=== PATIENT | female | born 1950 | race Caucasian/White ===

== ENCOUNTER → 2018-12-30 09:16 | Outpatient (CLI) | payer MEDICARE, OTHER, SELFPAY ==
--- NOTE | 2018-12-30 10:00 | MRI_ITS ---
STUDY: BILATERAL BREAST MR WITHOUT AND WITH CONTRAST REASON FOR EXAM: Female, 68 years old. Indeterminate nodule on most recent mammogram with a negative ultrasound. TECHNIQUE: Multi-sequence multi-echo imaging of both breasts was performed with a dedicated breast coil. T1-weighted and T2-weighted images were performed before the administration of contrast. T1-weighted images were also performed after the administration of 12 IV Dotarem without complications. COMPARISON: Bilateral mammograms dated December 09, 2018 and right breast ultrasound dated December 16, 2018. FINDINGS: RIGHT BREAST: The breast tissue is fatty with no background enhancement. There are no abnormal enhancing masses or areas of non-mass enhancement in the right breast. LEFT BREAST: The breast tissue is fatty with no background enhancement. There are no abnormal enhancing masses or areas of non-mass enhancement in the left breast. There are no enlarged or abnormal lymph nodes. There is no abnormality in the visualized regions of the chest or liver. MRI/Breast Bilateral W/O and W IMPRESSION: Normal breast MRI examination with contrast. A six-month follow-up right mammogram is recommended for the indeterminate nodule in the upper and posterior aspect of the right breast. CATEGORY: BIRADS Category 3: Probably Benign - Short-Interval Follow-up Suggested. A letter regarding these results will be sent to the patient by the facility within 30 days. Electronically Signed: Pratik Rodney MD at 16:29 EDT , Service support ,
== END ==
PROVIDERS: Family Provider Family Medicine; PCP Family Medicine; Referring Provider Family Medicine; Visit Provider Family Medicine
DX: R92.8 Other abnormal and inconclusive findings on diagnostic imaging of breast (principal)
CPT/HCPCS: 77049; A9575; A4216; C8908

== ENCOUNTER 2021-01-17 07:39 | Emergency (ER) | payer MEDICARE, OTHER, SELFPAY ==
[2021-01-17 07:40] VITALS: BP 152/77; PULSE 88; RESP 14; TEMP 37.1; O2SAT 100; BMI 25.5
--- NOTE | 2021-01-17 07:59 | EKG12_ITS ---
Test Reason : Blood Pressure : / mmHG Vent. Rate : 076 BPM Atrial Rate : 076 BPM P-R Int : 138 ms QRS Dur : 084 ms QT Int : 414 ms P-R-T Axes : 040 044 025 degrees QTc Int : 465 ms Normal sinus rhythm Normal ECG Confirmed by ANTONETTE KUO, LAKEISHA ([id number]), scientific editor TASHA SALES ([id number]) on 01/21/2021 1:38:14 PM Referred By: LUCRECIA Confirmed By:LAKEISHA WHITMAN MD
--- NOTE | 2021-01-17 07:59 | RAD_ITS ---
STUDY: X-RAY CHEST REASON FOR EXAM: Female, 70 years old. Sudden onset of chest pain. TECHNIQUE: Single AP portable view of the chest. COMPARISON: None. FINDINGS: EKG electrodes are seen. There is elevation and eventration of the left hemidiaphragm with mild increased markings at both lung bases suggestive of basilar atelectasis. Blunting of the left cause phrenic angle. Normal size heart. Normal mediastinum and kelby. Normal visualized pulmonary arteries. Normal visualized aortic arch and descending thoracic aorta. Normal visualized thoracic spine. Normal visualized ribs, clavicles, and shoulders. There is no demonstrated abnormality of the visualized soft tissue structures of the upper abdomen. RAD/Chest 1 View (Portable) IMPRESSION: Elevation and eventration of the left hemidiaphragm with bibasilar atelectasis. Electronically Signed: Niranjan Kathleen MD at 8:33 EDT , Service support ,
[2021-01-17 08:12] VITALS: O2SAT 98
--- NOTE | 2021-01-17 08:15 | ED.VIS.CHEST ---
HPI History of Present Illness Chief Complaint: Chest Pain Informant: patient Onset/Context/Timing Onset: Yesterday Activity at onset: gradual Quality: Positive for Dull Location: Left Parasternal Current Severity: Moderate Maximum Severity: Moderate Worsened By: Breathing Narrative Narrative: Patient present secondary to chest pain. She was doing bowel prep yesterday for an anticipated colonoscopy today. Patient states after starting the prep she developed a dull pain in her left upper chest that radiates to the shoulder and down her arm. It is worse with deep breath. She states that it did not worsen when she was up and ambulating. She does have a history of hiatal hernia and states this feels similar. She denies known cardiac history. [facility] Medical History Hiatal hernia High cholesterol Hypothyroidism Multiple sclerosis Home Medications levothyroxine [Euthyrox] 100 mcg PO DAILY 01/17/21 [History Last Taken Unknown] omeprazole magnesium [Prilosec OTC] 20 mg PO DAILY #30 tab 01/17/21 [Rx Last Taken Unknown] simvastatin 40 mg PO DAILY 01/17/21 [History Last Taken Unknown] Allergy/AdvReac Type Severity Reaction Status Date / Time No Known Allergies Allergy Verified 01/17/21 07:40 Social History Smoking Status: Never smoker ROS ROS ED Constitutional Constitutional ED: Denies chills or fever(s) Eyes Eyes: Denies change in vision ENT ENT ED: Denies sore throat Cardiovascular Cardiovascular: Reports chest pain Respiratory/Chest Respiratory/Chest: Reports other Details: Increased pain with deep breath ; Denies cough or dyspnea Gastrointestinal Gastrointestinal: Denies abdominal pain, diarrhea, nausea or vomiting Genitourinary Genitourinary ED: Denies dysuria Musculoskeletal Musculoskeletal: Denies back pain Integumentary Denies rash Neurologic Neurologic: Denies headache(s) or weakness Allergic/Immunologic Allergic/Immunologic ED: Denies urticaria EXAM Physical Exam Const Vital Signs: 01/17/21 07:40 01/17/21 08:12 01/17/21 08:21 Temperature 98.7 F Temperature Source Temporal Pulse Rate 88 Respiratory Rate 14 Respiratory Effort Normal Non-Labored Blood Pressure 152/77 H Blood Pressure Mean 102 Pulse Ox 100 98 Oxygen Delivery Method Room Air Room Air 01/17/21 11:02 Temperature Temperature Source Pulse Rate 87 Respiratory Rate 19 H Respiratory Effort Blood Pressure 119/79 Blood Pressure Mean 92 Pulse Ox 98 Oxygen Delivery Method Room Air Positive well nourished and well developed General Appearance ED: well developed HEENT Reports normocephalic and head/scalp atraumatic Eyes PERRL and EOMs intact bilaterally Neck supple Chest Wall inspection of chest normal and palpation of chest normal Resp normal respiratory effort and clear to auscultation bilaterally Cardio regular rate and regular rhythm GI normal to inspection, nondistended, normoactive bowel sounds Palpation: soft Extremity normal to inspection Neuro oriented x3 and no sensory deficits noted Sensorium / Orientation: alert Motor Exam: strength 5/5 throughout Psych mental status grossly normal Skin no rashes or lesions noted Heart Score History: Moderately Suspicious ECG: Normal Age: >/= 65 years Risk Factors: 1 or 2 Risk Factors Troponin: </= Normal Limit Score: 4 MDM MDM MDM Narrative Medical decision making narrative: Patient was given aspirin on arrival along with a small dose of morphine. Lab work, EKG, chest x-ray obtained. Lab Data Attestation: I reviewed the patient's lab results. Labs: Laboratory Results - last 24 hr 01/17/21 01/17/21 01/17/21 08:10 08:10 08:10 WBC 5.9 RBC 4.46 Hgb 13.5 Hct 41.8 MCV 93.7 MCH 30.3 MCHC 32.3 RDW Std Deviation 44.6 H RDW Coeff of Mihaela 13.0 Plt Count 177 MPV 10.3 Immature Gran % (Auto) 0.200 Neut % (Auto) 64.3 Lymph % (Auto) 25.5 [place] % (Auto) 8.0 Eos % (Auto) 1.5 Baso % (Auto) 0.5 Absolute Neuts (auto) 3.8 Absolute Lymphs (auto) 1.49 Nucleated RBC % 0 D-Dimer Quant (PE/DVT) 0.70 H* Sodium 142 Potassium 4.1 Chloride 109 H Carbon Dioxide 29.0 Anion Gap 4 L BUN 13 Creatinine 0.86 Estim Creat Clear Calc 51.81 Est GFR (MDRD) Af Amer 83 Est GFR (MDRD) Non-Af 69 BUN/Creatinine Ratio 15.0 Glucose 89 Calcium 8.9 Troponin I High Sens 6 01/17/21 10:54 WBC RBC Hgb Hct MCV MCH MCHC RDW Std Deviation RDW Coeff of Mihaela Plt Count MPV Immature Gran % (Auto) Neut % (Auto) Lymph % (Auto) [place] % (Auto) Eos % (Auto) Baso % (Auto) Absolute Neuts (auto) Absolute Lymphs (auto) Nucleated RBC % D-Dimer Quant (PE/DVT) Sodium Potassium Chloride Carbon Dioxide Anion Gap BUN Creatinine Estim Creat Clear Calc Est GFR (MDRD) Af Amer Est GFR (MDRD) Non-Af BUN/Creatinine Ratio Glucose Calcium Troponin I High Sens 6 Radiography Chest X-Ray - ED: 1 View, Read by ED Physician and - (Hiatal hernia with elevation of left hemidiaphragm.) Diagnostic Testing: Radiology Impression Chest X-Ray 01/17/21 07:59 IMPRESSION: Elevation and eventration of the left hemidiaphragm with bibasilar atelectasis. Electronically Signed: Niranjan Kathleen MD at 8:33 EDT , Service support , EKG Initial EKG: Attestation: I personally reviewed and interpreted this EKG as follows: Interpretation: Sinus Rhythm (Sinus at 76 with no acute ischemia.) Treatment and Re-Evaluation Comments:: On repeat examination patient's lab work reviewed with her and was largely unremarkable. Troponin is negative and D-dimer is normal when age-adjusted. She had some improvement in her pain with aspirin and morphine. Delta troponin was ordered and a GI cocktail given. On final repeat examination patient states that her pain is improved and she feels that she can breathe better after the GI cocktail. She does have evidence of elevated left hemidiaphragm and a hiatal hernia on her chest x-ray. She will be started on antacid and will follow up with Dr. Francisco. I did speak with Dr. Francisco and they will call her to reschedule her colonoscopy. Discharge Plan Triage Chief Complaint: Chest Pain ED Provider: Sindhu Mina Dx/Rx/DC Orders Clinical Impression: Chest pain, Hernia, hiatal Instructions: ED Chest Pain, Noncardiac, ED Hiatal Hernia Prescriptions: New omeprazole magnesium [Prilosec OTC] 20 mg tablet,delayed release (DR/EC) 20 mg PO DAILY Qty: 30 RF: 0 No Action simvastatin 40 mg tablet 40 mg PO DAILY RF: 0 levothyroxine [Euthyrox] 100 mcg tablet 100 mcg PO DAILY RF: 0 Primary Care Provider: Velasquez Graham Referrals: Lucia Francisco MD [STAFF PHYSICIAN] - As soon as possible Velasquez Graham DO [Primary Care Provider] - Disposition Disposition: Home, Self Care
[2021-01-17 08:17] LABS: Absolute Lymphocyte Count 1.49 X10^3/uL (0.83-4.51); Absolute Neutrophil Count 3.8 X10^3/uL (2.0-7.7); Basophil# 0.03 X10^3/uL; Basophil% 0.5 % (0-1); Eosinophil# 0.09 X10^3/uL; Eosinophils% 1.5 % (0-5); Hematocrit 41.8 % (37-47); Hemoglobin 13.5 g/dL (12.0-15.0); Lymphocyte # 1.49 X10^3/ul (0.83-4.51); Lymphocyte % 25.5 % (19-41); Mean Corp Hgb Conc 32.3 g/dL (32-36); Mean Corpuscular Hgb 30.3 pg (27.0-32.0); Mean Corpuscular Volume 93.7 fL (81-99); Mean Platelet Vol. 10.3 fl (6.2-12.0); Monocyte# 0.47 X10^3/uL; NRBC Flagged by Analyzer 0 % (0-5); Neutrophil # 3.76 X10^3/uL (2.7-7.7); Neutrophil % 64.3 % (47-70); Platelet Count 177 K/mm3 (150-450); RBC Distribution Width SD 44.6 fl (35.1-43.9); Red Blood Count 4.46 M/mm3 (4.2-5.4); White Blood Count 5.9 K/mm3 (4.4-11.0)
[2021-01-17] MEDS: Ondansetron 4 MG/2 ML Vial IV (08:20)
[2021-01-17] MEDS: Morphine 4 MG/ML Syringe 2 MG IV (08:20)
[2021-01-17] MEDS: Aspirin 81 MG TAB.CHEW 324 MG PO (08:20)
[2021-01-17 08:34] LABS: Anion Gap 4 (5-15); BUN 13 mg/dL (7-18); Calcium,Total 8.9 mg/dL (8.5-10.1); Chloride 109 mmol/L (98-107); Creatinine, Serum 0.86 mg/dL (0.55-1.02); EST Glomerular Filtration Rate 69 mL/min (>60); Est Glom Filt Rate - Afr Amer 83 mL/min (>60); Estimated Creatinine Clearance 51.81 ml/min; Glucose 89 mg/dL (74-106); Potassium 4.1 mmol/L (3.5-5.1); Sodium Level 142 mmol/L (136-145); Troponin-I HS 6 pg/mL (3.0-54.0)
[2021-01-17] MEDS: Mag Hydrox/Al Hydrox/Simeth 30 ML UDC PO (10:59)
[2021-01-17 11:02] VITALS: BP 119/79; PULSE 87; RESP 19; O2SAT 98
[2021-01-17 11:19] LABS: Troponin-I HS 6 pg/mL (3.0-54.0)
[2021-01-17 11:50] VITALS: BP 117/68; PULSE 59; RESP 16; O2SAT 98
== END 2021-01-17 11:51 | disposition home or self-care (01) ==
PROVIDERS: Emergency Provider Emergency Medicine; PCP Student in an Organized Health Care Education/Training Program
DX: R07.9 Chest pain, unspecified (principal); K44.9 Diaphragmatic hernia without obstruction or gangrene; G35 Multiple sclerosis; E03.9 Hypothyroidism, unspecified; E78.00 Pure hypercholesterolemia, unspecified; Z79.890 Hormone replacement therapy; Z79.899 Other long term (current) drug therapy
CPT/HCPCS: 71045; 80048; 84484; 85025; 85379; 93005; 96374; 96375; 99285; J7030; A4216; J2405

== ENCOUNTER 2024-05-10 07:50 | Outpatient (CLI) | payer MEDICARE, OTHER, SELFPAY ==
[2024-05-10 07:59] VITALS: BP 132/74; PULSE 811; RESP 16; TEMP 35.6; O2SAT 98; BMI 22.1
[2024-05-10] MEDS: PREMIXED IV (08:09)
[2024-05-10] MEDS: ZOLEDRONIC ACID IV (08:09)
[2024-05-10 08:43] VITALS: BP 124/70; PULSE 73; RESP 16; TEMP 36.1; O2SAT 100
== END 2024-05-10 23:59 | disposition home or self-care (01) ==
LOC: MEDOUTP 07:52
PROVIDERS: PCP Student in an Organized Health Care Education/Training Program; Referring Provider Internal Medicine Endocrinology, Diabetes & Metabolism; Visit Provider Internal Medicine Endocrinology, Diabetes & Metabolism
DX: M81.0 Age-related osteoporosis without current pathological fracture (principal)
CPT/HCPCS: 96365; A4216; J3489